=== PATIENT | female | born 1955 | race Caucasian/White ===

== ENCOUNTER 2020-12-06 18:19 | Observation (INO) ==
[2020-12-06] MEDS ORDERED: Isovue-370 500 ML BOTTLE IVP ONE (19:03)
[2020-12-06 19:34] LABS: Basophils # 0.1 K/mcL (0.0-0.2); Eosinophils # 0.1 K/mcL (0.0-0.6); Eosinophils % 1.4 %; Immature Granulocytes % 0.8 % (0-4); Lymphocytes # 2.2 K/mcL (0.6-4.6); Lymphocytes % 25.8 %; Mean Corpuscular HGB Conc 30.6 g/dL (31.6-35.5); Mean Corpuscular Hemoglobin 25.4 pg (28.0-33.3); Mean Corpuscular Volume 83.1 fL (83.0-100.0); Mean Platelet Volume 9.3 fL (9.4-12.4); Monocytes # 0.6 K/mcL (0.0-1.3); Monocytes % 7.2 %; Neutrophils # 5.3 K/mcL (1.6-8.9); Platelet Count 362 K/mcL (140-400); Red Blood Count 4.33 M/mcL (3.82-4.97); Red Cell Distribution Width 15.8 % (11.5-14.5); Segmented Neutrophils % 63.8 %; White Blood Count 8.3 K/mcL (4.3-11.1)
[2020-12-06 19:35] LABS: Bilirubin,Urine Negative (Negative); Blood,Urine Negative (Negative); Clarity,Urine Clear (Clear); Color,Urine Yellow (Yellow); Glucose,Urine (UA) Normal (Normal); Hyaline Casts,Urine Few per lpf (None Seen); Ketones,Urine Negative (Negative); Leukocyte Esterase,Urine Large (Negative); Mucus,Urine Few per lpf (None-Few); Nitrite,Urine Negative (Negative); PH,Urine 5.5 pH Units (5.0-8.0); Protein,Urine 30 mg/dL (Neg-Trace); Specific Gravity,Urine 1.029 (1.010-1.025); Squamous Epithelial Cell,Urine Moderate per hpf (None-Few); Transitional Epi Cells,Urine Few per hpf (None-Few); WBC,Urine 30-50 per hpf (0-3)
[2020-12-06 19:52] LABS: BUN/Creatinine Ratio 13 (6-26); Blood Urea Nitrogen 11 mg/dL (8-23); Calcium 9.5 mg/dL (8.6-10.3); Carbon Dioxide 22 mEq/L (23-29); Chloride 101 mEq/L (98-107); Glucose 184 mg/dL (70-105); Osmolality,Calculated 288 (280-300); Potassium 3.7 mEq/L (3.5-5.1); Sodium 137 mEq/L (136-145); Troponin I < 0.03 ng/mL (< 0.04); eGFR For African Americans > 60 (> 60); eGFR For Non-African Americans > 60 (> 60)
[2020-12-06] MEDS ORDERED: cefTRIAXone 1,000 MG in Water for inj. (sterile) 10 ML IVP ONE (21:59)
[2020-12-06] MEDS ORDERED: Aspirin 325 MG TABLET PO ONE (22:07)
[2020-12-07] MEDS ORDERED: Perflutren Lipid Microsphere 1.3 ML in 0.9 % Sodium Chloride 8.7 ML IVP PRN (00:03)
[2020-12-07] MEDS ORDERED: Naloxone 0.4 MG/ML INJ IVP PRN (00:04)
[2020-12-07] MEDS ORDERED: Prochlorperazine 10 MG/2 ML VIAL IVP PRN (00:09)
[2020-12-07] MEDS ORDERED: *HR* Dextrose 50 % in Water (Vial) 50 ML VIAL IVP PRN (00:35)
[2020-12-07] MEDS ORDERED: D5% in Water 1,000 ML IVC PRN (00:35)
[2020-12-07] MEDS ORDERED: Dextrose Gel 15 GM/37.5 ML TUBE PO PRN ×2 (00:35)
[2020-12-07] MEDS ORDERED: Morphine Sulfate 2 MG/ML SYRINGE IVP PRN (02:10)
[2020-12-07 02:15] LABS: Hematocrit 31.5 % (35.3-44.9); Hemoglobin 9.7 g/dL (11.5-15.4); Mean Corpuscular HGB Conc 30.8 g/dL (31.6-35.5); Mean Corpuscular Hemoglobin 25.7 pg (28.0-33.3); Mean Corpuscular Volume 83.6 fL (83.0-100.0); Mean Platelet Volume 9.5 fL (9.4-12.4); Platelet Count 301 K/mcL (140-400); Red Blood Count 3.77 M/mcL (3.82-4.97); Red Cell Distribution Width 16.1 % (11.5-14.5); White Blood Count 8.7 K/mcL (4.3-11.1)
[2020-12-07 02:24] LABS: INR 1.4; Prothrombin Time 15.6 Seconds (9.4-12.1)
[2020-12-07 02:27] LABS: Activated Partial Thrombo Time 31.9 Seconds (26.0-36.0)
[2020-12-07 02:32] LABS: BUN/Creatinine Ratio 13 (6-26); Blood Urea Nitrogen 11 mg/dL (8-23); Calcium 9.3 mg/dL (8.6-10.3); Carbon Dioxide 23 mEq/L (23-29); Chloride 103 mEq/L (98-107); Chol/HDL Ratio 2.9 (0-4.9); Cholesterol 167 mg/dL (< 200); Glucose 94 mg/dL (70-105); HDL Cholesterol 58 mg/dL (40-59); LDL Cholesterol,Calculated 89 mg/dL (< 100); Magnesium 1.7 mg/dL (1.6-2.6); Osmolality,Calculated 283 (280-300); Potassium 3.8 mEq/L (3.5-5.1); Sodium 137 mEq/L (136-145); Triglycerides 101 mg/dL (< 150); eGFR For African Americans > 60 (> 60); eGFR For Non-African Americans > 60 (> 60)
[2020-12-07 02:36] LABS: % Iron Saturation 6 % (15-50); Iron 25 mcg/dL (50-170); Transferrin 277 mg/dL (203-362)
[2020-12-07 02:52] LABS: Ferritin < 8 ng/mL (10-120)
[2020-12-07 03:01] LABS: Folate > 22.3 ng/mL (3.0-16.0); Vitamin B12 156 pg/mL (250-1100)
[2020-12-07 04:21] LABS: Estimated Average Glucose 283 mg/dl; Hemoglobin A1C 11.5 %
[2020-12-07] MEDS: Insulin LISPRO 300 UNITS/3 ML VIAL SUBQ SCH ×3 (07:25→16:56)
[2020-12-07] MEDS: Apixaban 5 MG TABLET PO SCH ×3 (07:25→21:18)
[2020-12-07] MEDS ORDERED: Iron Sucrose Complex 400 MG in 0.9 % Sodium Chloride 250 ML IVPB ONE (08:03)
[2020-12-07] MEDS: Aspirin Enteric Coated 81 MG Tablet PO SCH (09:13)
[2020-12-07] MEDS: Regadenoson 0.4 MG/5 ML SYRINGE IVP ONE ×2 (10:52→11:47)
[2020-12-07] MEDS ORDERED: Ondansetron ODT 4 MG TAB.RAPDIS SL PRN (10:56)
[2020-12-07] MEDS: BuPROPion XL (24 HR) 150 MG TABLET PO SCH (17:32)
[2020-12-07] MEDS: Acetaminophen 325 MG TABLET PO PRN (17:34)
[2020-12-07] MEDS ORDERED: QUEtiapine Fumarate 100 MG TABLET PO SCH (21:00)
[2020-12-07] MEDS ORDERED: Insulin LISPRO 300 UNITS/3 ML VIAL SUBQ SCH (21:00)
[2020-12-07] MEDS ORDERED: cefTRIAXone 1,000 MG in 0.9 % Sodium Chloride Mini Bag 100 ML IVPB SCH (22:00)
[2020-12-08 07:08] VITALS: BP 114/74
[2020-12-08 07:15] LABS: Hematocrit 34.8 % (35.3-44.9); Hemoglobin 10.3 g/dL (11.5-15.4); Mean Corpuscular HGB Conc 29.6 g/dL (31.6-35.5); Mean Corpuscular Hemoglobin 25.2 pg (28.0-33.3); Mean Corpuscular Volume 85.3 fL (83.0-100.0); Mean Platelet Volume 9.5 fL (9.4-12.4); Platelet Count 302 K/mcL (140-400); Red Blood Count 4.08 M/mcL (3.82-4.97); White Blood Count 5.1 K/mcL (4.3-11.1)
[2020-12-08] MEDS: Insulin LISPRO 300 UNITS/3 ML VIAL SUBQ SCH (07:21)
[2020-12-08] MEDS: Apixaban 5 MG TABLET PO SCH (07:22)
[2020-12-08] MEDS: Aspirin Enteric Coated 81 MG Tablet PO SCH (07:22)
[2020-12-08] MEDS: BuPROPion XL (24 HR) 150 MG TABLET PO SCH (07:22)
[2020-12-08] MEDS: Acetaminophen 325 MG TABLET PO PRN (07:27)
[2020-12-08 07:31] LABS: BUN/Creatinine Ratio 14 (6-26); Blood Urea Nitrogen 11 mg/dL (8-23); Calcium 10.6 mg/dL (8.6-10.3); Carbon Dioxide 26 mEq/L (23-29); Chloride 105 mEq/L (98-107); Glucose 249 mg/dL (70-105); Osmolality,Calculated 290 (280-300); Potassium 4.5 mEq/L (3.5-5.1); Sodium 136 mEq/L (136-145); eGFR For African Americans > 60 (> 60); eGFR For Non-African Americans > 60 (> 60)
[2020-12-08] MEDS ORDERED: Insulin DETEMIR 100 UNIT/ML X5UNITS SUBQ ONE (07:47)
== END 2020-12-08 10:51 | disposition home or self-care (01) ==
LOC: 3BNU 18:19 → EMEROOARM 18:19 → SUATTDRO 22:13 → 3BNU 22:54
PROVIDERS: ADMIT Student in an Organized Health Care Education/Training Program; ATTEND Internal Medicine